=== PATIENT | female | born 1970 | race Caucasian/White ===

== ENCOUNTER → 2016-07-17 | Day surgery (SDC) | payer OTHER ==
[~2016-07-17] MED LIST: ALAVERT10 MG PO; BENTYL20 MG PO; BENZONATATE; CITALOPRAM HBR40 MG PO; COZAAR25 MG PO; FLEXERIL10 M1; GABAPENTIN300 MG PO; HUMALOG SLIDING SUBQ; HUMALOG100 UNIT/2; HYDROXYZINE HCL25 M1 PO; JANUMET XR 50-1 EAC1 PO; KEFLEX500 MG PO; KOMBIGLYZE XR1 EAC1 PO; LANTUS100 U/ML; LEVEMIR FL100 UNIT/1 SUBQ; LEVEMIR FLEXPEN SQ; LEVEMIR SUBQ; LORTAB 5-325 M1 EACH; LOSARTAN POTASS50 MG PO; LOVASTATIN20 MG PO; OMEPRAZOLE20 M1 PO; OMEPRAZOLE20 M2 PO; PAMELOR50 M1 PO; PHENERGAN25 M1 PO; PREMARIN0.9 MG PO; ROBITUSSIN A-C S5 ML; SARAFEM20 MG PO; TENORMIN50 MG PO; TYLENOL #3 PO; ZOCOR20 MG PO
--- NOTE | ~2016-07-17 | OR ---
Unit #: [id number] #: [id number] Patient: VIDHYA HUERTA [id number] [address] [address] [id number] O MR#: [id number] NAME: VIDHYA HUERTA ROOM: Date of Procedure: 07/17/2016 Admission Date: 07/17/2016 Surgeon: Keyon Justin M.D. : 1970 Attending Physician: Keyon Justin M.D. Primary Care Physician: Gay Morrison A.P.R.N. OPERATIVE REPORT SERVICES PROVIDED 1. Therapeutic left L5-S1 and left S1 transforaminal epidural steroid injections. 2. Fluoroscopy of the lumbosacral spine. 3. IV sedation to facilitate the above. PREOPERATIVE DIAGNOSES 1. Degenerative disk disease at L5-S1 and left L5, S1 radiculopathy with anterolisthesis L5-S1. 2. Insulin-dependent diabetes mellitus, depression, anxiety disorder, psoriasis. POSTOPERATIVE DIAGNOSES 1. Degenerative disk disease at L5-S1 and left L5, S1 radiculopathy with anterolisthesis L5-S1. 2. Insulin-dependent diabetes mellitus, depression, anxiety disorder, psoriasis. PROCEDURE PERFORMED Lumbar transforaminal epidural steroid injections using fluoroscopy. FOLLOW-UP/REVIEW OF SYSTEMS/PHYSICAL EXAM Ms. Huerta is here for left L5-S1 and left S1 transforaminal epidural steroid injections. She will monitor her blood sugars closely over the next few days and titrate the insulin accordingly. She has no medical contraindications to the procedure that was performed as follows with her consent. INDICATIONS/COMMENTS AND CONSENTS/STATEMENT OF MEDICAL NECESSITY The patient's current medications, allergies and vital signs are documented in the nursing assessment. The risks and benefits of the intervention(s) were discussed with the patient in detail including but not limited to infection, bleeding, meningitis, steroid induced side-effects, nerve damage, paralysis, spinal headaches, neuritis, persistent or worsening pain. The patient wishes to proceed. A separate pain assessment is also in the chart. I have reviewed all of this and have reviewed this with the patient. A current History and Physical is also attached. DESCRIPTION OF PROCEDURE(S) 1. Monitoring and positioning: After appropriate discussions it was decided to perform the procedure under local anesthesia with supplemental Unit #: [id number] #: [id number] Patient: VIDHYA HUERTA intravenous sedation. Vital signs were monitored in pre, intra and post-procedure phase. Monitoring included EKG, non-invasive BP, pulse oximetry, and temperature. These are documented and were stable. Appropriate supports and restraints were used. 2. Sedation: A total of 2 mg of versed and 100 mcg of fentanyl was administered. 3. Transforaminal epidural injection or selective nerve root block / fluoroscopy:. The patient was placed in the prone position. Sterile prep and drape was carried out with ChloraPrep. Positional supports were used. Fluoroscopy of the lumbosacral spine was performed. Local anesthesia was infiltrated with 3 mL of preservative-free 1% lidocaine. Once anesthesia was established, a 20-gauge blunt Epimed nerve block needle was inserted into left L5-S1 and left S1 transforaminal regions with oblique fluoroscopic guidance, and advanced lateral to the superior articular process and to the superior aspect of the intervertebral foramen. Needle placement tested negative for subarachnoid and intravascular placement. An intraoperative dye study was now performed. Intraoperative dye study: 1 mL of Isovue-300 was injected through the needle under continuous fluoroscopy. The spread of the dye was uniform along the left L5 and left S1 nerve roots. There was no intravascular or intrathecal spread of contrast. Left L5-S1 and left S1 lumbar transforaminal epidural steroid injection was performed using a total of 2 mL of a solution containing 0.7% lidocaine and 40 mg of Depo-Medrol at each of the above two sites. Fluoroscopic imaging confirmed spread of medication. The needle(s) were then removed intact. The skin was washed off. Prep solution and dressings were applied at the injection sites. The patient tolerated the procedure well. The patient was then observed in the recovery area for 30 minutes. RESULTS The patient had a consistent block with the dose of local anesthetic used. Pain relief was satisfactory. There were no complications or side effects. DISCHARGE CONDITION 1. The patient was discharged in a satisfactory condition accompanied by a family member. 2. Post-procedure instructions were given. PLAN(S) The patient will return to the clinic in 2 months for re-assessment and office visit. I thank the patient's referring physician for the opportunity to participate in the care of this patient. Please do not hesitate to call for any questions regarding this patient's pain management. Dictated by... Kye Daily/jumana TD: 07/18/2016 01:31 JOB #: [id number] Unit #: [id number] #: [id number] Patient: VIDHYA HUERTA OPERATIVE REPORT Page 1 of 1 X Keyon Justin MD PROCEDURE OPERATIVE NOTE
== END | disposition home or self-care (01) ==
LOC: CCSC 08:18
DX: M51.17 Intervertebral disc disorders with radiculopathy, lumbosacral region (principal); M43.17 Spondylolisthesis, lumbosacral region; E11.9 Type 2 diabetes mellitus without complications; F32.9 Major depressive disorder, single episode, unspecified; F41.9 Anxiety disorder, unspecified; L40.9 Psoriasis, unspecified; F17.210 Nicotine dependence, cigarettes, uncomplicated; K21.9 Gastro-esophageal reflux disease without esophagitis; Z90.710 Acquired absence of both cervix and uterus; Z90.49 Acquired absence of other specified parts of digestive tract; Z90.89 Acquired absence of other organs; Z88.8 Allergy status to other drugs, medicaments and biological substances
CPT/HCPCS: J1040; J2250; J3010

== ENCOUNTER 2016-10-04 18:20 | Emergency (ER) | payer OTHER ==
--- NOTE | ~2016-10-04 | CR150 ---
[facility] A Service [facility] RADIOLOGY TEXT RESULTS PATIENT: VIDHYA HUERTA LOCATION: SED : 70 UNIT #: [id number] AGE: [address]: Maynro Martin PAC SEX: F ORDER DR: [id number] [place] [id number] E MR#: [id number] Acc #: [id number] NAME: VIDHYA HUERTA : 1970 SEX: F STUDY DATE/TIME: 10/04/2016 19:16 UNIT: SED ROOM: STUDY DESCRIPTION: CR Hip Min 2 Views Lt Attending Physician: Maynor Martin P.A.-C. Ordering Physician: Maynor Martin P.A.-C. Primary Care Physician: Gay Morrison A.P.R.N. MEDICAL IMAGING REPORT This report is preliminary unless electronic signature is present. EXAM Left hip series INDICATIONS Chronic left hip pain, but worse since yesterday. PROCEDURE Frontal view of the pelvis and a lateral view of the left hip. COMPARISON STUDIES None. FINDINGS No acute fracture or dislocation. IMPRESSION No acute findings. Dictated by... Todd Coe M.D. THIS IS AN ELECTRONICALLY VERIFIED REPORT Todd Coe M.D. at 10/05/2016 9:30 AM EED/layne TD: 10/04/2016 21:29 JOB #: [id number] MEDICAL IMAGING REPORT [facility] A Service [facility] RADIOLOGY TEXT RESULTS PATIENT: VIDHYA HUERTA LOCATION: SED : [birth year] UNIT #: [id number] AGE: [address]: Maynor Martin PAC SEX: F ORDER DR: Page 1 of 1
--- NOTE | ~2016-10-04 | CR173 ---
[facility] A Service of [facility] RADIOLOGY TEXT RESULTS PATIENT: VIDHYA HUERTA LOCATION: SED : 70 UNIT #: [id number] AGE: [address]: Maynor Martin PAC SEX: F ORDER DR: [id number] [place] [address] [id number] E MR#: [id number] Acc #: [id number] NAME: VIDHYA HUERTA : 1970 SEX: F STUDY DATE/TIME: 10/04/2016 19:16 UNIT: SED ROOM: STUDY DESCRIPTION: CR Knee 3 Views Rt Attending Physician: Maynor Martin P.A.-C. Ordering Physician: Maynor Martin P.A.-C. Primary Care Physician: Gay Morrison A.P.R.N. MEDICAL IMAGING REPORT This report is preliminary unless electronic signature is present. EXAM Right knee series INDICATIONS Right knee pain, chronic but worse since yesterday. PROCEDURE Three views of the right knee. 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 No acute fracture, dislocation or joint effusion. IMPRESSION 1. No acute findings. 2. Tricompartmental arthrosis. Dictated by... Todd Coe M.D. THIS IS AN ELECTRONICALLY VERIFIED REPORT Todd Coe M.D. at 10/05/2016 9:30 AM EED/psc TD: 10/04/2016 21:36 JOB #: [id number] MEDICAL IMAGING REPORT [facility] A Service [facility] RADIOLOGY TEXT RESULTS PATIENT: VIDHYA HUERTA LOCATION: SED : [birth year] UNIT #: [id number] AGE: [address]: Maynor Martin PAC SEX: F ORDER DR: Page 1 of 1
[~2016-10-04 18:20] MED LIST changes: -HUMALOG100 UNIT/2; -LORTAB 5-325 M1 EACH
[2016-10-04] MEDS ORDERED: LORTAB 5-325 M1 EACH (18:33)
[2016-10-04] MEDS ORDERED: HUMALOG100 UNIT/2 (18:33)
== END 2016-10-04 19:57 | disposition home or self-care (01) ==
LOC: SED 18:20
DX: M25.552 Pain in left hip (principal); M25.561 Pain in right knee; E11.9 Type 2 diabetes mellitus without complications; K21.9 Gastro-esophageal reflux disease without esophagitis; F32.9 Major depressive disorder, single episode, unspecified; F17.210 Nicotine dependence, cigarettes, uncomplicated; Z90.710 Acquired absence of both cervix and uterus; Z90.49 Acquired absence of other specified parts of digestive tract; Z79.899 Other long term (current) drug therapy; Z88.8 Allergy status to other drugs, medicaments and biological substances
CPT/HCPCS: 73502; 73562; 96372; 99284; J1885